=== PATIENT | male | born 1975 | race Caucasian/White ===

== ENCOUNTER 2018-06-22 21:30 | Emergency (ER) | payer BC, OTHER ==
[2018-06-22 21:42] VITALS: BP 140/90; PULSE 78; TEMP 98; BMI 39.4
--- NOTE | 2018-06-22 21:48 | PDOC ---
Rapid Medical Evaluation Chief Complaint: Pain, Acute Time Seen by Provider: 06/22/18 21:37 Medical Evaluation: Allergies Allergy/AdvReac Type Severity Reaction Status Date / Time No Known Allergies Allergy Verified 06/22/18 21:36 Vital Signs Temp Pulse Resp BP Pulse Ox 98 F 78 16 140/90 100 06/22/18 21:37 06/22/18 21:37 06/22/18 21:37 06/22/18 21:37 06/22/18 21:37 06/22/18 21:42 43 year old male with left knee reports pulling something while grabbing something from high . PE: pain with flexing ankle. able to leg raise. no deformity A: knee pain P: xray patient to [facility] ER for further management of care. Discharge Disposition - Diagnosis Knee pain, left Qualifiers: Chronicity: acute Qualified Code(s): M25.562 - Pain in left knee - Referrals - Patient Instructions - Post Discharge Activity
--- NOTE | 2018-06-22 23:27 | PDOC ---
History of Present Illness - General Chief Complaint: Pain, Acute Stated Complaint: [employer] - LEFT LEG PAIN Time Seen by Provider: 06/22/18 21:37 - History of Present Illness Initial Comments: 43 year old male with PMH of right calf muscle tear presenting with left calf pain after a misstep in his "man cave". Patient states that he was cleaning his "man cave" and stepped awkwardly, hyperextending his left knee. He immediately felt some pain the medial aspect of his left calf and some mild tingling in his left first toe. He has been able to walk with minimal pain since. Denies any swelling, or decreased strength sensation. Denies any fever,s chills, nausea, vomiting, diarrhea, or others symptoms. 06/23/18 01:20 Past History - Past Medical History Allergies/Adverse Reactions: Allergies Allergy/AdvReac Type Severity Reaction Status Date / Time No Known Allergies Allergy Verified 06/22/18 21:36 Home Medications: Ambulatory Orders NK [No Known Home Medication] 06/22/18 COPD: No - Suicide/Smoking/Psychosocial Hx Smoking History: Never smoked Have you smoked in the past 12 months: No Information on smoking cessation initiated: No Hx Alcohol Use: No Drug/Substance Use Hx: No Review of Systems - Review of Systems Constitutional: No: Chills, Diaphoresis, Fever, Loss of Appetite HEENTM: No: Eye Pain, Blurred Vision, Tearing Respiratory: No: Cough, Orthopnea, Shortness of Breath Cardiac (ROS): No: Chest Pain, Edema, Irregular Heart Rate ABD/GI: No: Diarrhea, Nausea, Vomiting : No: Dysuria, Discharge, Frequency Musculoskeletal: Yes: Muscle Pain. No: Gout, Muscle Weakness Integumentary: No: Lesions, Lumps, Pallor Neurological: No: Headache, Numbness, Paresthesia Psychiatric: No: Anxiety, Depression Hematologic/Lymphatic: No: Anemia, Blood Clots, Easy Bleeding *Physical Exam - Vital Signs Last Vital Signs Temp Pulse Resp BP Pulse Ox 98 F 78 16 140/90 100 06/22/18 21:37 06/22/18 21:37 06/22/18 21:37 06/22/18 21:37 06/22/18 21:37 - Physical Exam General Appearance: Yes: Nourished, Appropriately Dressed. No: Apparent Distress HEENT: positive: EOMI, LARRY, Normal ENT Inspection, Normal Voice Neck: positive: Trachea midline, Normal Thyroid, Supple. negative: Tender, Rigid Respiratory/Chest: positive: Lungs Clear, Normal Breath Sounds. negative: Chest Tender, Respiratory Distress, Accessory Muscle Use Cardiovascular: positive: Regular Rhythm, Regular Rate Gastrointestinal/Abdominal: positive: Normal Bowel Sounds, Flat, Soft. negative : Tender Lymphatic: negative: Adenopathy, Tenderness Musculoskeletal: negative: Normal Inspection (slight limp with preference for right side on ambulation. No strength deficit, no leg swelling. Singer squeeze test negative (good plantar flexion of both feet with calf squeeze). Good dorsiflexion and plantar flexion.) Extremity: positive: Normal Capillary Refill, Normal Inspection, Normal Range of Motion. negative: Tender Integumentary: positive: Normal Color, Dry, Warm Neurologic: positive: Fully Oriented, Alert, Normal Mood/Affect, Normal Response , Motor Strength 5/5 Medical Decision Making - Medical Decision Making 43 year odl male with right sided calf pain after mis-stepping during a "[employer]" cleaning session. He was able to ambulate in our ED with a minor limp and negligible pain. Clinical presentation most concerning for medial left gastrocnemius strain or possible minor tear. Discussed the lack of utility in imaging the leg given there was not strength deficit or bony tenderness/ deformity and patient agreed that we could defer imaging. We sent him home with movement precautions and ortho referral if needed. 06/23/18 01:56 *DC/Admit/Observation/Transfer Diagnosis at time of Disposition: Knee pain, left Qualifiers: Chronicity: acute Qualified Code(s): M25.562 - Pain in left knee - Discharge Dispostion Disposition: HOME - Referrals Referrals: ON STAFF,NOT [Primary Care Provider] - Binu Medina MD [Staff Physician] - - Patient Instructions Printed Discharge Instructions: DI for Calf Muscle Strain Additional Instructions: Please use be careful while moving for the next week but do not stay in bed as movement should help your injury. You could have had a small muscle tear in your calf but this should be evaluated by an orthopedic surgeon if you symptoms do not improve in a few days. Please return to the ED if you have new or worsening symptoms. - Post Discharge Activity
--- NOTE | 2018-06-23 00:09 | PDOC ---
Documentation entered by Brenda Hernandez SCRIBE, acting as scribe for Harry Kemp MD. Harry Kemp MD: This documentation has been prepared by the Mary riley Adrianna, SCRIBE, under my direction and personally reviewed by me in its entirety. I confirm that the documentation accurately reflects all work, treatment, procedures, and medical decision making performed by me. Attending Attestation - Resident Resident Name: Balbina Mittal - ED Attending Attestation I have performed the following: I have examined & evaluated the patient, The case was reviewed & discussed with the resident, I agree w/resident's findings & plan, Exceptions are as noted - HPI HPI: The patient is a 43 year old male, with a significant PMH of right calf tear, who presents to the emergency department today complaining of left calf pain for a few hours. Patient notes that he began experiencing pain prior to arrival , when he was cleaning and misstepped, causing him to overextend his LLE. Patient notes that the pain is most prominent on the left medial calf, and is exacerbated with dorsiflexion of the left foot. He notes originally feeling tingling from the left ankle to the left foot, which has since resolved. Patient notes he was able to ascend/descend stairs with mild pain following the incident. He notes he came to the ED because he is concerned he may have torn his calf, since this pain feels similar to the pain he felt when he tore his other calf. The patient denies chest pain, shortness of breath, headache and dizziness. Denies fever, chills, nausea, vomit, diarrhea and constipation. Denies dysuria, frequency, urgency and hematuria. Allergies: NKA Past surgical history: None reported Social history: No reported PCP: Not on Staff 06/23/18 00:00 - Physicial Exam PE: 06/23/18 01:49 Agree with exam as documented by resident - Medical Decision Making 06/23/18 01:50 Likely small muscle injury, no signs of tendon disruption acute imaging not indicated Pt refused analgesia dc with return instructions
== END 2018-06-23 00:20 | disposition home or self-care (01) ==
LOC: JERFT 21:30 → JER 21:30
DX: S86.112A Strain of other muscle(s) and tendon(s) of posterior muscle group at lower leg level, left leg, initial encounter (principal); X50.9XXA Other and unspecified overexertion or strenuous movements or postures, initial encounter; Y93.89 Activity, other specified; Y92.018 Other place in single-family (private) house as the place of occurrence of the external cause; Y99.8 Other external cause status
CPT/HCPCS: 99281-25